=== PATIENT | male | born 1970 | race Caucasian/White ===

== ENCOUNTER → 2017-11-08 | Outpatient (CLI) | payer BC | END | disposition home or self-care (01) | LOC: KCIC US 14:57 | DX: I70.292 Other atherosclerosis of native arteries of extremities, left leg (principal) | CPT/HCPCS: 93922; 93925 ==

== ENCOUNTER → 2017-11-14 | Outpatient (CLI) | payer BC | END | disposition home or self-care (01) | LOC: KCIC 14:44 | DX: M16.0 Bilateral primary osteoarthritis of hip (principal) | CPT/HCPCS: 72114; 73502 ==

== ENCOUNTER → 2017-11-20 | Outpatient (CLI) | payer BC ==
[~2017-11-20] MED LIST: CONTRAST GIVEN. MC
[2017-11-20] MEDS: IOHEXOL 240 MG/ML 50ML VIAL. PO (15:22)
[2017-11-20] MEDS: IOHEXOL 300 MG/ML 100ML VIAL. IV (15:22)
== END | disposition home or self-care (01) ==
LOC: KCIC CT 14:10
DX: K40.90 Unilateral inguinal hernia, without obstruction or gangrene, not specified as recurrent (principal); M25.78 Osteophyte, vertebrae; J98.11 Atelectasis; Z87.891 Personal history of nicotine dependence
CPT/HCPCS: 74178; Q9966; Q9967

== ENCOUNTER → 2018-02-07 | Outpatient (CLI) | payer BC ==
[2017-12-14 10:34] VITALS: BP 132/65
[~2018-02-07] MED LIST changes: +ATOR20TA58 PO; +CLOP75TA PO; -CONTRAST GIVEN. MC
--- NOTE | 2018-02-07 17:44 | CARD ---
MR#: [id number] Date of Study: 02/07/2018 Ordering Physician: RAPHAEL GRAHAM, Referring Physician: RAPHAEL GRAHAM Tech: Winnie Maurice RDCS APPROVED REPORT INDICATION PAD Reason : Abnormal EKG PROCEDURE The patient underwent an Exercise Stress Test using the [employer] Protocol. Blood pressure, heart rate, a nd EKG were monitored. An Echocardiogram was performed by metal technician in four stages in quad fashion. At peak stress four se lected images were obtained and placed side by side with resting images for comparison. STRESS ECHO FINDINGS The resting Echocardiogram showed normal left ventricular systolic contractility with an estimated Ej ection Fraction of about 60 %. The Resting Echocardiogram showed normal augmentation of myocardial wall segments using a 16 segment model. The Stress Echocardiogram showed normal augmentation of myocardial wall segments using a 16 segment m jana. The Stress Echocardiogram left ventricular systolic contractility has an estimated Ejection Fraction of about 70%. Test Type: Exercise Stress Nurse/Tech: Adalgisa Marques R.N. Test Indications: peripheral artery dz Resting Heart Rate: 54 bpm Resting Blood Pressure: 139/77mmHg Pretest Chest Pain: No chest pain Nurse/Tech Notes lungs cta, heart rate regular Stress Symptoms No chest pain or symptoms. POST EXERCISE Reason for Termination: Fatigue, pt c/o hip pain Target HR: No Max HR: 143 bpm 83% of Maximum Predicted HR: 173 bpm Exercise duration: 7:36 min:sec, 3 Stage Exercise capacity: 10.1METs Max Blood Pressure: 157/69mmHg Blood Pressure response to exercise: Normal blood pressure response during stress. Heart Rate response to exercise: normal Chest Pain: No. Arrhythmia: No. ST Change: Yes. INTERPRETATION Stress EKG Conclusion: Pt had episode following stress test, of light headedness and c/o not feeling well. Pt provided with juice and VSS. Dr Graham evaluated pt. s/s resolved pt able to go home Baseline EKG with lateral wall infarct. No significant ST changes to suggest ischemia on stress testi ng. STRESS ECG Stress EKG shows no significant changes. Preliminary Notification Critical Value: No <Conclusion> Adequate exercise capacity with 10.1 Mets Abnormal baseline EKG with lateral wall infarct. No new ischemia with stress. Normal resting EF/wall motion. Normal augmentation of wall motion and EF with stress. Low risk for future CV events. Signed by : Eamon Larkin, Electronically Approved : 02/07/2018 17:43:01
== END | disposition home or self-care (01) ==
LOC: ECHO 12:43
PROVIDERS: ATTEND Internal Medicine Cardiovascular Disease
DX: I21.29 ST elevation (STEMI) myocardial infarction involving other sites (principal); I73.9 Peripheral vascular disease, unspecified; I74.5 Embolism and thrombosis of iliac artery; M16.0 Bilateral primary osteoarthritis of hip; Z88.6 Allergy status to analgesic agent; Z87.891 Personal history of nicotine dependence
CPT/HCPCS: 93017; 93350

== ENCOUNTER → 2019-01-21 | Outpatient (CLI) | payer BC ==
[2017-12-14 10:34] VITALS: BP 132/65
--- NOTE | 2019-01-26 10:09 | RAD ---
MR#: [id number] Date of Study: 01/21/2019 Ordering Physician: RAPHAEL GRAHAM, Referring Physician: RAPHAEL GRAHAM, Tech: June Montejo, HANNAH, RVT, RTR APPROVED REPORT Patient Location: OUT-PATIENT Risk Factors History of Lower Extremity PAD: Bilaterally PAD Surgery/Intervention Stent : Date : 2017 Site : Bilateral Iliacs VELOCITY AND DOPPLER WAVEFORM ANALYSIS RIGHT cm/secWaveformSeverity LEFT cm/secWaveform Severity Ext Iliac Art. 192.0Ext Iliac Art. 135.0 pCFA 177.4pCFA 99.6 Prof Fem Art. 110.4Prof Fem Art. 73.6 Fem Art Prox. 124.1Fem Art Prox. 85.7 Fem Art Mid. 119.9Fem Art Mid. 84.1 Fem Art Dist. 117.1Fem Art Dist. 79.4 Pop Art(AK) 64.3Pop Art(AK) Pop Art(Fossa) Pop Art(AK) 65.7 SENIOR POLICY ADVISOR Prox. 56.3PTA Prox. 40.9 SENIOR POLICY ADVISOR Dist. 104.1PTA Dist. 76.2 Per Art Prox. 93.3Per Art Prox. 75.7 GAGANDEEP Prox. 68.9ATA Prox. 54.1 DPA 110DPA 97 Findings Grayscale images reveal mild diffuse into hyperplasia and plaque. The previously placed the bilateral iliac stents were not well visualized. Nonetheless there are norm al velocities in the left mid and distal iliac arteries. Mildly elevated velocities in the right dist al iliac artery but no focal obstruction noted. The right lower extremity has normal velocities without any obvious evidence of significant stenosis. There is three-vessel runoff below the knee. Similarly on the left side there are mostly biphasic wa veforms above the knee and monophasic waveforms below the knee but the velocities are within normal l imits. Critical Notification Critical Value: No <Conclusion> 1. No significant bilateral lower extremity arterial disease identified. 2. Previously placed the bilateral iliac stents not well visualized but no obvious evidence of outflo w disease based on UNLOADER OPERATOR velocities. Signed by : Eamon Larkin, Electronically Approved : 01/26/2019 10:09:06
== END | disposition home or self-care (01) ==
LOC: US 14:52
PROVIDERS: ATTEND Internal Medicine Cardiovascular Disease
DX: I77.3 Arterial fibromuscular dysplasia (principal); I70.203 Unspecified atherosclerosis of native arteries of extremities, bilateral legs; Z95.5 Presence of coronary angioplasty implant and graft
CPT/HCPCS: 93925

== ENCOUNTER → 2019-07-22 | Outpatient (CLI) | payer BC ==
[2017-12-14 10:34] VITALS: BP 132/65
--- NOTE | 2019-07-22 15:49 | CARD ---
MR#: [id number] Date of Study: 07/22/2019 Ordering Physician: RAPHAEL GRAHAM, Referring Physician: RAPHAEL GRAHAM Tech: Sravanthi Bundy RDCS APPROVED REPORT EXAM: Two-dimensional and M-mode echocardiogram with Doppler and color Doppler. Other Information Quality : Good INDICATION Peripheral Arterial Disease 2D DIMENSIONS RVDd2.1 (2.9-3.5cm)Left Atrium(2D)3.7 (1.6-4.0cm) IVSd0.9 (0.7-1.1cm)Aortic Root(2D)3.2 (2.0-3.7cm) LVDd5.7 (3.9-5.9cm)LVOT Diameter2.0 (1.8-2.4cm) PWd0.9 (0.7-1.1cm)LVDs3.5 (2.5-4.0cm) FS (%) 37.9 %SV108.0 ml LVEF(%)67.3 (>50%) Aortic Valve AoV Peak Darrion.175.4cm/sAoV VTI31.0cm AO Peak GR.12.3mmHgLVOT Peak Darrion.138.4cm/s LVOT VTI 28.38cmAO Mean GR.7mmHg VAISHNAVI (VMAX)2.76yu5HTD (VTI)2.82cm2 Mitral Valve MV E Zbjbdjem35.8cm/sMV DECEL KTLN858ew MV A Jnmghecp94.3cm/sMV SOU55sb E/A Ratio1.2MVA (PHT)3.74cm2 TDI E/Lateral E'11.3E/Medial E'9.7 Tricuspid Valve TR P. Ntvhblzp136zb/sRAP [id number] TR Peak Gr.43mmNbAPBY05ocGs Pulmonary Vein S1 Ybmezuwo76.5cm/sD2 Cgbxzmpx53.1cm/s LEFT VENTRICLE The left ventricle is normal size. There is normal left ventricular wall thickness. The left ventricu lar systolic function is normal. The Ejection Fraction is 55-60%. There is normal LV segmental wall m otion. The left ventricular diastolic function and filling is normal for age. RIGHT VENTRICLE The right ventricle is normal size. The right ventricular systolic function is normal. ATRIA The left atrium size is normal. The right atrium size is normal. The interatrial septum is intact wit h no evidence for an atrial septal defect or patent foramen ovale as noted on 2-D or Doppler imaging. AORTIC VALVE The aortic valve is normal in structure and function. Doppler and Color Flow revealed no significant aortic regurgitation. There is no significant aortic valvular stenosis. MITRAL VALVE The mitral valve is normal in structure and function. There is no evidence of mitral valve prolapse. There is no mitral valve stenosis. Doppler and Color Flow revealed no mitral valve regurgitation note d. TRICUSPID VALVE The tricuspid valve is normal in structure and function. Doppler and Color Flow revealed trace tricus pid regurgitation. The PA pressure was estimated at 23 mmHg. There is no tricuspid valve stenosis. PULMONIC VALVE The pulmonic valve is not well visualized. Doppler and Color Flow revealed no pulmonic valvular regur gitation. There is no pulmonic valvular stenosis. GREAT VESSELS The aortic root is normal in size. The ascending aorta is mildly dilated at 3.5 cm. The IVC is normal in size and collapses >50% with inspiration. PERICARDIAL EFFUSION There is no evidence of significant pericardial effusion. Critical Notification Critical Value: No <Conclusion> The left ventricular systolic function is normal. The Ejection Fraction is 55-60%. There is normal LV segmental wall motion. Doppler and Color Flow revealed trace tricuspid regurgitation. The PA pressure was estimated at 23 mmHg. There is no evidence of significant pericardial effusion. Signed by : Raphael Graham, Electronically Approved : 07/22/2019 15:49:08
== END | disposition home or self-care (01) ==
LOC: ECHO 13:52
PROVIDERS: ATTEND Internal Medicine Cardiovascular Disease
DX: I77.810 Thoracic aortic ectasia (principal); I73.9 Peripheral vascular disease, unspecified
CPT/HCPCS: 93306